=== PATIENT | female | born 1980 | race Two or more races ===

== ENCOUNTER 2017-09-07 22:29 | Emergency (ER) | payer OTHER ==
[2017-09-08] MEDS: IBUPROFEN 200 MG TAB PO (02:08)
[2017-09-08] MEDS: ACETAMINOPHEN 500 MG TAB PO (02:08)
== END 2017-09-08 03:36 | disposition home or self-care (01) ==
LOC: FTE 22:29
DX: J20.9 Acute bronchitis, unspecified (principal)
CPT/HCPCS: 71010; 71045; 99284-25